=== PATIENT | female | born 1955 | race Caucasian/White ===

== ENCOUNTER 2019-06-10 11:08 | Inpatient (IN) ==
[2019-06-10] MEDS ORDERED: NEXIUM IV SCH (15:00)
[2019-06-10] MEDS ORDERED: SODIUM CHLORIDE 0.9% INJ SCH (15:00)
[2019-06-10] MEDS: DUONEB (A & A) INH PRN (15:50)
[2019-06-10] MEDS: ZOSYN 3.375 GM in NS 50 ML IV SCH ×2 (15:53→21:49)
[2019-06-10] MEDS: LEVAQUIN 500 MG/D5W 500 MG/100 ML IVPB IV SCH (15:53)
[2019-06-10] MEDS: SODIUM CHLORIDE 0.9% INJ SCH (15:55)
[2019-06-10] MEDS: PROTONIX IV SCH (15:55)
[2019-06-10] MEDS: SOLU-MEDROL IV SCH ×2 (15:56→22:42)
[2019-06-10] MEDS: LOVENOX SUBQ SCH (15:56)
[2019-06-10 16:11] LABS: ALLEN TEST NO; BE 2.9 mmoll (-3.0-3.0); BLOOD TYPE ARTERIAL; HCO3-(ACT) 27.1 mmoll (20.0-26.0); METHB 1.2 % (0.0-1.5); O2(CT) 15.5 mL/dL (15.0-23.0); O2HB 92.7 % (95.0-99.0); PCO2(98.6) 30 mmHg (35-45); PO2(98.6) 65 mmHg (60-100); SAMPLE BLOOD; THB 11.9 g/dL (11.5-17.4); pH(98.6) 7.53 (7.35-7.45)
[2019-06-10 16:12] LABS: MODALITY ROOM AIR
[2019-06-10] MEDS ORDERED: PREVNAR 13 IM ONE (17:14)
--- NOTE | 2019-06-10 17:35 | HISTORY AND PHYSICAL ---
CHIEF COMPLAINT: Shortness of breath, cough, wheezing, low-grade fever. HISTORY OF PRESENT ILLNESS: She is a 63-year-old white female who came to our clinic with a 3-day history of URI symptoms. Chest x-ray showed hazy infiltrate in the right lower lobe and also emphysema. The patient was admitted to the hospital for acute COPD exacerbation. PAST MEDICAL HISTORY: Chronic anxiety, diverticulosis, acid reflux disease, hyperlipidemia, tobacco abuse, B12 deficiency. PAST SURGICAL HISTORY: Partial colectomy, cholecystectomy, complete hysterectomy. MEDICATIONS: B12 injections once a month, hydroxyzine 25 b.i.d., Mobic 7.5 mg daily, pravastatin 80 mg daily, Xanax 1 mg p.o. b.i.d., aspirin 81 mg daily. ALLERGIES: Not known. SOCIAL HISTORY: She is , two children. Smoking half a pack a day for the last 30 years. Living in [place]. FAMILY HISTORY: Father of heart attack at 62. Mom 83 years old with dementia. Sister had rheumatoid arthritis. HEALTH MAINTENANCE: Influenza vaccine was refused. She is not up-to-date on pneumococcal vaccine. Last mammography 04/2018. REVIEW OF SYSTEMS: HEENT: No headache. No vision problem. No sore throat. No earache. Neck: No neck pain. No goiter. No lymphadenopathy. Cardiopulmonary: Cough, shortness of breath, wheezing. No chest pain. GI: No nausea, vomiting, abdominal pain. : No history of hesitancy, frequency, dysuria. Musculoskeletal: No swelling of legs. No joint pain. Neurologic: No focal symptoms or weakness. PHYSICAL EXAMINATION: VITAL SIGNS: Temperature is 97.8 degrees, pulse 79, blood pressure is 106/60, 98% on room air. HEENT: Atraumatic, normocephalic. Pupils equal, react to light. TMs are normal. Nose and throat within normal limits. NECK: Supple. No lymphadenopathy. No goiter. CHEST: Bilateral air entry. Wheezing. Crackles in the right base. HEART: Distant heart sounds. ABDOMEN: Belly is soft, nontender. EXTREMITIES: No peripheral edema, cyanosis. NEUROLOGIC: No obvious neurological deficits. IMAGING: Chest x-ray: COPD changes, right lower lobe infiltrate. LABS: Pending. ASSESSMENT AND PLAN: 1. A 63-year-old white female admitted to the hospital with acute chronic obstructive pulmonary disease exacerbation with right lower lobe pneumonia. Plan of care is oxygen, bronchodilators, IV steroids, IV antibiotics. 2. Deep vein thrombosis and gastrointestinal prophylaxis. 3. Reconcile home medicine. 4. Initiate pneumonia vaccine prior to the discharge and follow up. cc: John Fuller MD
--- NOTE | 2019-06-10 19:47 | EKG Report ---
Test Performed on : 06/10/2019 5:26:41 PM Test Reason : chest pain Blood Pressure : / mmHG Vent. Rate : 083 BPM Atrial Rate : 083 BPM P-R Int : 122 ms QRS Dur : 066 ms QT Int : 376 ms P-R-T Axes : 073 077 099 degrees QTc Int : 441 ms Normal sinus rhythm. Septal infarct , age undetermined Abnormal ECG When compared with ECG of 06-DEC-2014 15:59, T wave inversion now evident in Anterior leads Confirmed by Dirk PATRICK, Cyril Leyva ([id number]) on 06/13/2019 9:27:52 AM
[2019-06-10] MEDS: XANAX PO SCH (21:48)
[2019-06-10] MEDS: ATARAX PO SCH (21:48)
[2019-06-10] MEDS: COLACE PO SCH (21:48)
[2019-06-10] MEDS: ZOCOR PO SCH (21:49)
[2019-06-11] MEDS: ZOSYN 3.375 GM in NS 50 ML IV SCH ×4 (03:00→21:12)
[2019-06-11] MEDS: SOLU-MEDROL IV SCH ×3 (06:05→22:40)
[2019-06-11 07:26] LABS: BASO# 0.01 X1000 (0.0-0.2); BASO% 0.2 % (0.0-0.8); EOS# 0.02 X1000 (0.0-0.7); EOS% 0.5 % (0.0-10.0); HEMOGLOBIN 11.3 g/dL (12.0-16.0); LYMPH# 0.79 X1000 (1.2-3.4); LYMPH% 18.1 % (20.5-51.1); MCH 32.5 PG (27-31); MCHC 33.2 g/dL (33-37); MCV 97.7 FL (81-99); MONO# 0.09 X1000 (0.11-0.59); MONO% 2.1 % (1.7-9.3); MPV 9.4 FL (7.4-10.4); NEUT# 3.46 X1000 (1.4-6.5); NEUT% 79.1 % (42.2-75.2); PLT 318 X1000 (130-400); RBC 3.48 XMIL (4.2-5.4); RDW 11.7 % (11.5-14.5); WBC 4.37 X1000 (4.8-10.8)
[2019-06-11 08:16] LABS: AGAP 17; BUN 17 mg/dL (8-22); CALCIUM 9.2 mg/dL (8.8-10.2); CHLORIDE 97 mmol/L (98-107); CK PROFILE 52 U/L (24-173); COSMO 276; CREATININE 0.9 mg/dL (0.5-0.9); ESTIMATED GFR > 60; GLUCOSE 137 mg/dL (70-104); POTASSIUM 4.3 mmol/L (3.5-5.1); SODIUM 136 mmol/L (136-145); TCO2 22 mmol/L (25-35)
[2019-06-11] MEDS: COLACE PO SCH ×2 (08:52→21:13)
[2019-06-11] MEDS: ASPIRIN PO SCH (08:52)
[2019-06-11] MEDS: ATARAX PO SCH ×2 (08:52→21:13)
[2019-06-11] MEDS: DUONEB (A & A) INH PRN ×2 (09:06→16:12)
[2019-06-11] MEDS: XANAX PO SCH ×2 (09:49→21:12)
[2019-06-11] MEDS: PHENERGAN WITH CODEINE LIQUID PO PRN ×2 (14:04→22:40)
[2019-06-11] MEDS: LEVAQUIN 500 MG/D5W 500 MG/100 ML IVPB IV SCH (14:49)
[2019-06-11] MEDS: PROTONIX IV SCH (14:51)
[2019-06-11] MEDS: SODIUM CHLORIDE 0.9% INJ SCH (14:51)
[2019-06-11] MEDS: LOVENOX SUBQ SCH (14:51)
[2019-06-11] MEDS: ZOCOR PO SCH (21:12)
[2019-06-12] MEDS: ZOSYN 3.375 GM in NS 50 ML IV SCH ×4 (02:47→21:20)
[2019-06-12] MEDS: SOLU-MEDROL IV SCH ×2 (06:07→14:57)
[2019-06-12 08:18] LABS: BASO# 0.01 X1000 (0.0-0.2); BASO% 0.1 % (0.0-0.8); HEMATOCRIT 33.8 % (37.0-47.0); HEMOGLOBIN 11.1 g/dL (12.0-16.0); IMM GRAN# 0.03 X1000 (0.0-0.04); IMM GRAN% 0.2 % (0.0-0.5); LYMPH# 0.82 X1000 (1.2-3.4); LYMPH% 6.6 % (20.5-51.1); MCH 32.2 PG (27-31); MCHC 32.8 g/dL (33-37); MONO# 0.28 X1000 (0.11-0.59); MONO% 2.3 % (1.7-9.3); MPV 9.6 FL (7.4-10.4); NEUT# 11.26 X1000 (1.4-6.5); NEUT% 90.8 % (42.2-75.2); PLT 370 X1000 (130-400); RBC 3.45 XMIL (4.2-5.4); RDW 11.9 % (11.5-14.5)
[2019-06-12] MEDS: ASPIRIN PO SCH (09:08)
[2019-06-12] MEDS: COLACE PO SCH ×2 (09:08→21:20)
[2019-06-12] MEDS: ATARAX PO SCH ×2 (09:09→21:20)
[2019-06-12] MEDS: XANAX PO SCH ×2 (09:09→21:20)
[2019-06-12] MEDS: PHENERGAN WITH CODEINE LIQUID PO PRN ×3 (10:16→21:20)
[2019-06-12] MEDS: DUONEB (A & A) INH PRN (10:56)
--- NOTE | 2019-06-12 11:25 | PROGRESS NOTE ---
DATE: 06/12/2019 Ms. Baez has acute COPD with right upper lobe pneumonia. We are going to repeat the chest x-ray. Vital signs are stable. White count was 12.40, hemoglobin 11.1, hematocrit 33.3. She is on IV Solu-Medrol, as well as piperacillin. We are going to continue the current management on her. -0 cc: MD John Rinaldi MD
[2019-06-12 13:29] LABS: BANDS 4 % (0-1); LYMPHS 2 % (21-51); MONO 4 % (1-9); SEGS 90 % (42-75)
[2019-06-12] MEDS: LOVENOX SUBQ SCH (14:56)
[2019-06-12] MEDS: LEVAQUIN 500 MG/D5W 500 MG/100 ML IVPB IV SCH (14:56)
[2019-06-12] MEDS: PROTONIX IV SCH (14:57)
[2019-06-12] MEDS: SODIUM CHLORIDE 0.9% INJ SCH (14:57)
[2019-06-12] MEDS: ZOCOR PO SCH (21:19)
[2019-06-12] MEDS: AUGMENTIN PO SCH (22:59)
[2019-06-12] MEDS ORDERED: DUONEB (A & A) ONE (23:30)
[2019-06-13] MEDS: ZOSYN 3.375 GM in NS 50 ML IV SCH (03:13)
--- NOTE | 2019-06-13 04:20 | PROGRESS NOTE ---
DATE: 06/11/2019 Ms. Baez who is a 63-year-old white female, has normal vital signs. She has persistent cough. She has COPD with right lower lobe pneumonia. She is on IV piperacillin, as well as IV Solu- Medrol. Her white count is 4.37, hemoglobin 11.3, hematocrit 34. We will order some cough medicine for her today. -2 cc: MD John Rinaldi MD
[2019-06-13] MEDS: SOLU-MEDROL IM SCH ×2 (06:05→18:36)
[2019-06-13 08:36] LABS: BASO# 0.01 X1000 (0.0-0.2); BASO% 0.1 % (0.0-0.8); HEMATOCRIT 34.3 % (37.0-47.0); HEMOGLOBIN 11.1 g/dL (12.0-16.0); IMM GRAN# 0.04 X1000 (0.0-0.04); IMM GRAN% 0.3 % (0.0-0.5); LYMPH# 2.01 X1000 (1.2-3.4); LYMPH% 16.1 % (20.5-51.1); MCH 32.5 PG (27-31); MCHC 32.4 g/dL (33-37); MCV 100.3 FL (81-99); MONO# 0.46 X1000 (0.11-0.59); MONO% 3.7 % (1.7-9.3); MPV 9.5 FL (7.4-10.4); NEUT# 9.93 X1000 (1.4-6.5); NEUT% 79.8 % (42.2-75.2); PLT 379 X1000 (130-400); RBC 3.42 XMIL (4.2-5.4); RDW 12.4 % (11.5-14.5); WBC 12.45 X1000 (4.8-10.8)
--- NOTE | 2019-06-13 09:04 | Diag Imaging Result Doc PS360 ---
EXAM: CHEST-2 VIEWS HISTORY: pneumonia TECHNIQUE: Two views COMPARISON: 12/06/2014 FINDINGS: The lungs are hyperexpanded. The heart is not enlarged. The vessels are not distended. There are no infiltrates. No pleural effusions. Scattered granuloma. Mild scoliosis. IMPRESSION: No pneumonia. Electronically signed by Real Abreu 06/13/2019 9:02 AM
[2019-06-13] MEDS: ATARAX PO SCH ×2 (09:41→22:10)
[2019-06-13] MEDS: ASPIRIN PO SCH (09:41)
[2019-06-13] MEDS: COLACE PO SCH ×2 (09:42→22:10)
[2019-06-13] MEDS: AUGMENTIN PO SCH ×2 (09:42→22:10)
[2019-06-13] MEDS: XANAX PO SCH ×2 (09:42→22:10)
[2019-06-13] MEDS: PHENERGAN WITH CODEINE LIQUID PO PRN ×2 (09:42→22:10)
[2019-06-13] MEDS: DUONEB (A & A) INH PRN (09:50)
[2019-06-13] MEDS: LOVENOX SUBQ SCH (16:50)
[2019-06-13] MEDS: PROTONIX IV SCH (16:50)
[2019-06-13] MEDS: LEVAQUIN PO SCH (16:50)
[2019-06-13] MEDS: SODIUM CHLORIDE 0.9% INJ SCH (16:51)
[2019-06-13] MEDS: ZOCOR PO SCH (22:10)
--- NOTE | 2019-06-14 04:39 | PROGRESS NOTE ---
DATE: 06/13/2019 SUBJECTIVE: The patient is getting better. She is getting a repeat chest x-ray today. PHYSICAL EXAMINATION: Vital Signs: Temperature is 97.5 degrees and pulse 55. Vitals are stable. HEENT: Within normal limits. Neck: Supple. No lymphadenopathy. Chest: Clear to auscultation and decreased wheezing. Heart: Sounds are regular. Abdomen: Belly is soft and nontender. INVESTIGATIONS: White cell count 12, hematocrit 34, and platelets 379,000. SMA 7 is normal. ProBNP 1209. Chest x-ray is improving. ASSESSMENT AND PLAN: 1. Acute chronic obstructive pulmonary disease exacerbation with right lower lobe hazy infiltrate, improving. 2. Hyperlipidemia. 3. Chronic anxiety. 4. Poor intravenous access. PLAN OF CARE: 1. Changing medicines by mouth, and if she is stable we will discharge in the morning. 2. Will consider pneumococcal vaccine prior to the discharge. LEVEL OF DOCUMENTATION: 25 minutes. cc: John Fuller MD
[2019-06-14] MEDS: SOLU-MEDROL IM SCH (06:12)
[2019-06-14 08:18] VITALS: BP 110/57
[2019-06-14] MEDS ORDERED: FLU VACCINE IM ONE (08:30)
[2019-06-14] MEDS: ASPIRIN PO SCH (08:47)
[2019-06-14] MEDS: AUGMENTIN PO SCH (08:47)
[2019-06-14] MEDS: COLACE PO SCH (08:47)
[2019-06-14] MEDS: ATARAX PO SCH (08:47)
[2019-06-14] MEDS: LEVAQUIN PO SCH (08:47)
[2019-06-14] MEDS: XANAX PO SCH (08:47)
--- NOTE | 2019-06-15 20:23 | DISCHARGE SUMMARY ---
ADMISSION DATE: 06/10/2019 DISCHARGE DATE: 06/14/2019 DATE OF ADMISSION: 06/10/2019. DATE OF DISCHARGE: 06/13/2019. DISCHARGING DIAGNOSIS: Acute chronic obstructive pulmonary disease exacerbation with a right lower lobe infiltrate. SECONDARY DIAGNOSES: 1. Chronic anxiety. 2. Diverticulosis. 3. Acid reflux disease. 4. Hyperlipidemia. 5. Tobacco abuse. 6. B12 deficiency. BRIEF HISTORY: Please see the H and P that was done on 06/10/2019. In brief, she is a 63-year- old white female basically admitted to the hospital with URI symptoms, cough and congestion, shortness of breath. Chest x-ray showed hazy infiltrate in the right lower lobe. She has hoarseness of voice. HOSPITAL COURSE: Patient was given oxygen, bronchodilators, IV steroids, IV antibiotics. On followup, her symptoms much improved. Followup chest x-ray completely better. Patient back to the baseline. Patient was given influenza vaccine 06/14/2019 and pneumococcal vaccine 13 was given 06/14/2019. LABS: At the time of discharge as follows: White cell count 12.4, hematocrit 34, platelet count 379,000. ABG: PH is 7.53, pCO2 30, pO2 65 on room air. SMA 7 is normal. ProBNP 1200. DISCHARGING INSTRUCTIONS: 1. Hydroxyzine 25 p.o. b.i.d. 2. Simvastatin 80 daily. 3. Mobic 7.5 daily. 4. Aspirin 81 mg daily. 5. Xanax 0.5 p.o. b.i.d. 6. Colace 100 p.o. b.i.d. 7. Multivitamin 1 tablet daily. 8. Levaquin 500 daily for 10 days. 9. Follow up in my office in 10 days. cc: John Fuller MD
== END 2019-06-14 09:21 | disposition home or self-care (01) | DRG 190 ==
LOC: DIRADM 11:08 → EDIPHOLD 13:43 → 3N 15:12
PROVIDERS: ADMIT Internal Medicine; ATTEND Internal Medicine